=== PATIENT | female | born 1990 | race Caucasian/White ===

== ENCOUNTER → 2016-05-24 | Day surgery (SDC) | payer MEDICAID ==
[~2016-05-24] VITALS: Ht 160 cm; Wt 68.0 kg
[~2016-05-24] MED LIST: ALBU2.5V13 IH; CLINDAMYCIN 300 MG in DEXTROSE 5% WATER 50 ML IV STA; FENTANYL CITRATE/PF 50MCG/ML 2ML VIAL ONE; FERR-63 PO; HYDROMORPHONE HCL/PF 2MG/ML CPJ IV PRN; KETOROLAC 60MG/2ML VIAL IM ONE; LACTATED RINGERS 1,000 ML IV SCH; LIDOCAINE HCL 1% 20ML VIAL (Pyxis) INJ ONE; MIDAZOLAM HCL 2 MG/2 ML VIAL ONE; ONDANSETRON HCL 4MG/2ML VIAL IV PRN; ONDANSETRON HCL 4MG/2ML VIAL ONE; PROPOFOL 200MG/20ML VIAL IV ONE
[2016-05-24 12:22] LABS: UCG SCREEN NEGATIVE
== END | disposition home or self-care (01) ==
LOC: OR 11:47
PROVIDERS: ATTEND Obstetrics & Gynecology
DX: Z30.432 Encounter for removal of intrauterine contraceptive device (principal); T85.628A Displacement of other specified internal prosthetic devices, implants and grafts, initial encounter; N93.9 Abnormal uterine and vaginal bleeding, unspecified; Z83.3 Family history of diabetes mellitus; Z82.49 Family history of ischemic heart disease and other diseases of the circulatory system
CPT/HCPCS: 58562; 81025; 88300; 88305; C1758; J1885; J2250; J2405; J3010; J3490; J7120; J2704; J7060